=== PATIENT | male | born 1945 | race Caucasian/White ===

== ENCOUNTER 2021-04-12 15:27 | Outpatient (REF) | payer MEDICARE, SELFPAY ==
--- NOTE | ~2021-04-12 | XR_ITS ---
EXAMINATION: XR WRIST, RIGHT CLINICAL INFORMATION: Pain in right wrist. COMPARISON: None TECHNIQUE: PA, lateral, and oblique views of the right wrist. FINDINGS: There is a small fracture fragment at scaphoid lunate joint space. No additional fracture seen. The triquetrum dorsal hook is more prominent on the lateral view questioning subluxation. No abnormal joint effusion seen. There is a mild dorsal wrist soft tissue swelling. XR/XR wrist RT min 3V IMPRESSION: Small fracture fragment at the scapholunate joint space with mild widening of the joint space. The origin of the fracture fragment is not known. Abnormal appearing triquetrum bone along the dorsal aspect question subluxation. There is mild dorsal wrist soft tissue swelling. Further evaluation can be performed with CT of the wrist on an outpatient basis.
== END 2021-04-12 15:28 | disposition home or self-care (01) ==
LOC: HO.HMGCX 15:27
PROVIDERS: Visit Provider Physician Assistant Medical
DX: M25.531 Pain in right wrist (principal)
CPT/HCPCS: 73110

== ENCOUNTER → 2021-04-18 14:48 | Outpatient (BNVA) | payer MEDICARE, SELFPAY | PROVIDERS: PCP Internal Medicine; Visit Provider Orthopaedic Surgery | DX: M25.531 Pain in right wrist (principal); M25.431 Effusion, right wrist | CPT/HCPCS: 99202; J1020 ==

== ENCOUNTER → 2021-04-26 14:52 | Outpatient (BNVA) | payer MEDICARE, SELFPAY | PROVIDERS: PCP Internal Medicine; Visit Provider Orthopaedic Surgery | DX: M25.531 Pain in right wrist (principal) | CPT/HCPCS: 99212; J1100 ==

== ENCOUNTER → 2021-05-30 09:14 | Outpatient (BNVA) | payer MEDICARE, SELFPAY | PROVIDERS: PCP Internal Medicine; Visit Provider Orthopaedic Surgery | DX: S46.211D Strain of muscle, fascia and tendon of other parts of biceps, right arm, subsequent encounter (principal); M25.431 Effusion, right wrist; M25.531 Pain in right wrist; M25.511 Pain in right shoulder | CPT/HCPCS: 99212; J1040 ==

== ENCOUNTER 2021-07-13 09:00 | Outpatient (RCR) | payer MEDICARE, SELFPAY ==
[2021-06-07 17:29] VITALS: BP 170/85; PULSE 70
--- NOTE | 2021-06-07 17:54 | MHC.PT.EP ---
[facility] [place] [facility] [place] [facility] [place] [facility] [address] Claribel Sifuentes [address] [phone] F: [phone] F: [phone] F: [phone] F: [phone] Physical Therapy Plan of Care Date of Evaluation: Date of Surgery: Diagnosis: R shoulder pain, biceps tendon rupture. Assessment: Pt is a RHD 75 y/o French speaking male referred to PT for eval and treat of R shoulder pain and R biceps rupture resulting in decreased tolerance for reaching high shelves, dressing pull-overs, lifting objects of weight, reaching his back for dressing/ hygiene, and laying on his R side secondary to decreased R shoulder ROM and strength, TTP of R biceps, and evidence of likely R biceps rupture upon inspection and palpation. Pt is deemed an appropriate candidate to receive skilled PT in order to address his physical limitations to improve his functional ability. Frequency and Duration: The patient will be seen 2 x / wk x 5 wks. Short Term Goals: Initiate HEP with evidence of compliance. Improve pain with activity to < 4/10; initial 8/10. Singing Messenger Goals: I with HEP. Pt will be able to place objects on high shelf with managed Sx. Pt will be able to reach his back for hygiene and dressing; initial: unable. Pt will achieve at least 165 degrees AROM flexion w/o pain; initial 135 with painful end. Treatment Plan: Modalities to reduce pain, spasms and effusion. Manual therapy to restore motion and function. Therapeutic exercise to improve strength and flexibility. Neuromuscular re-education for posture and balance. Therapeutic activities to return to functional activities of daily living. Electronically signed by: Bandar Drew PT Please sign and return to therapist. Thank you for your referral.
--- NOTE | 2021-11-08 13:22 | MHC.PT.DC ---
[facility] [place] [facility] [place] [facility] [place] [facility] [address] Claribel Sifuentes [address] [phone] F: [phone] F: [phone] F: [phone] F: [phone] Physical Therapy Discharge Report Diagnosis: R shoulder pain, biceps tendon rupture. Date of Surgery: Date of Evaluation: 06/07/21 Date of Discharge: 11/08/21 Treatments to Date: 8 Cancellations to Date: No Shows to Date: 2 Discharge Status: Patient Elected to Stop Visit Non-compliance Discharge Summary: Pt did not follow up with PT re. his last 2 appts so final assessment was not performed; last session note below. 07/13: Pt reports he likes the exercises though also reports his pain is about the same and feels some spasm of his R biceps are as of late. Gentle exercise performed. no adverse effects; reports imagining tomorrow. Electronically signed by: Bandar Drew PT. Please sign and return to therapist. Thank you for your referral.
== END 2021-11-08 13:23 | disposition home or self-care (01) ==
LOC: HO.PTCHIC 09:00
PROVIDERS: PCP Internal Medicine; Visit Provider Orthopaedic Surgery
DX: M25.511 Pain in right shoulder (principal); S45.211 Laceration of axillary or brachial vein, right side
CPT/HCPCS: 97014; 97110; 97140; 97161

== ENCOUNTER → 2021-08-21 08:43 | Outpatient (BNVA) | payer MEDICARE, SELFPAY | PROVIDERS: PCP Internal Medicine; Visit Provider Orthopaedic Surgery | DX: S46.211D Strain of muscle, fascia and tendon of other parts of biceps, right arm, subsequent encounter (principal); S46.811D Strain of other muscles, fascia and tendons at shoulder and upper arm level, right arm, subsequent encounter | CPT/HCPCS: 99212; J1100 ==

== ENCOUNTER → 2021-11-17 09:18 | Outpatient (BNVA) | payer MEDICARE, SELFPAY | PROVIDERS: PCP Internal Medicine; Visit Provider Orthopaedic Surgery | DX: S46.811A Strain of other muscles, fascia and tendons at shoulder and upper arm level, right arm, initial encounter (principal); M75.101 Unspecified rotator cuff tear or rupture of right shoulder, not specified as traumatic; M75.41 Impingement syndrome of right shoulder | CPT/HCPCS: 99212 ==